=== PATIENT | male | born 1990 | race Caucasian/White ===

== ENCOUNTER 2016-11-07 20:16 | Emergency (ER) | payer SELFPAY ==
[~2016-11-07] VITALS: Ht 172.7 cm; Wt 81.5 kg
[~2016-11-07 20:16] MED LIST: ANTISOL30 EACH EAR; CIPR500T4 PO
[2016-11-07 20:18] VITALS: BP 137/83; PULSE 88; RESP 16; TEMP 98; O2SAT 99
[2016-11-07] MEDS ORDERED: TOBR.3%O RIGHT EYE (20:49)
--- NOTE | 2016-11-07 20:53 | PD ---
HPI Chief Complaint: Eye Problems/Injury Time Seen by Provider: 20:49 Travel History International Travel<30 days: No Contact w/Intl Traveler<30days: No Traveled to known affect area: No History of Present Illness HPI 26-year-old white male presents to emergency department with complains of pain in his right eyelid with a possible sty. He states that this is been bothering him nearly 1-2 weeks. He denies any blurred vision or double vision. He states that he had squeezed his eye last week and had some fluid come out. He does not wear glasses or contacts. He does construction. He is up-to-date with immunizations. No diplopia. No itching, burning or tearing. PFSH Past Medical History Medical History: Denies Significant Hx Diminished Hearing: No Tetanus Vaccination: < 5 Years Influenza Vaccination: No Past Surgical History Surgical History: No Previous Surgery Social History Alcohol Use: Yes Tobacco Use: Yes (10/24 PPD) Substance Use: No Allergies-Medications (Allergen,Severity, Reaction): Coded Allergies: Erythromycins (Verified Allergy, Mild, 11/07/16) Sulfa (Verified Allergy, Mild, 11/07/16) Reported Meds & Prescriptions Reported Meds & Active Scripts Active No Active Prescriptions or Reported Medications Review of Systems Except as stated in HPI: all other systems reviewed are Neg Eyes: Positive: Redness, Foreign Body Sensation, Pain, No: Diploplia, Blurred Vision, Photophobia, Drainage, Tearing, Visual changes Physical Exam Narrative GENERAL: This is a well-nourished, well-developed patient, in no apparent distress. SKIN: No rashes, ecchymoses or lesions. Warm and dry. HEAD: Atraumatic. Normocephalic. EYES: PERRL, EOMI, the left EYE no discharge or injection. No scleral icterus. The right eye is injected. There is a foreign body noticed at the 6:00 hour or the iris. Lids are flipped and no foreign body seen under the lids. Ophthaine is instilled in the right eye. The foreign bodies removed without incidence using a cotton tip applicator. Fluorescein stain reveals a small punctate abrasion from the foreign body but no rust ring. Visual acuity noted EARS: Clear NOSE: Nasal turbinates appear normal. THROAT: Mucosa pink and moist. Airway patent. NECK: Trachea midline. supple, moves head freely. LUNGS: Clear to auscultation. CV: Regular in rhythm. ABDOMEN: Soft nontender. EXT: No clubbing cyanosis or edema. Data Data Last Documented VS Vital Signs Date Time Temp Pulse Resp B/P Pulse Ox O2 Delivery O2 Flow Rate FiO2 11/07/16 20:18 98.0 88 16 137/83 99 MDM Medical Decision Making Medical Screen Exam Complete: Yes Emergency Medical Condition: Yes Medical Record Reviewed: Yes Differential Diagnosis MDM: High Differential diagnoses: Acute conjunctivitis (bacterial, viral, allergic, traumatic), glaucoma, iritis, traumatic globe injury, foreign body, corneal abrasion, corneal ulcer, diabetic retinopathy, photokeratitis, herpes keratitis , CMV retinitis Narrative Course Patient has a foreign body in his right eye just below the pupil. This is removed without incidence. This is right eye foreign body removal Diagnosis Primary Impression: RIGHT EYE FOREIGN BODY REMOVAL Referrals: Mireya Hahn MD 2 days Patient Instructions: General Instructions Additional Instructions: Rest. Wash eyelashes with baby shampoo 3 times daily. Warm compresses. Tobramycin ophthalmic ointment Followup with an eye doctor in 48 hours. Follow-up with a medical doctor one week. Return to the ER if any problems. Med/Other Pt SpecificInfo: Prescription(s) given Scripts Tobramycin Opth Oint (Tobrex Opth Oint)0.3 % Oint1 Applic RIGHT EYE TID #1 TUBE Ref 0 Prov:Rehana Palmer MD 11/07/16 Disposition: 01 DISCHARGE HOME Condition: Stable Jose Miguel Dhillon Nov 07, 2016 20:53
== END 2016-11-07 21:16 | disposition home or self-care (01) ==
LOC: NEPB 20:16
DX: T15.81XA Foreign body in other and multiple parts of external eye, right eye, initial encounter (principal); F17.200 Nicotine dependence, unspecified, uncomplicated; X58.XXXA Exposure to other specified factors, initial encounter
CPT/HCPCS: 99283

== ENCOUNTER 2017-10-20 11:36 | Emergency (ER) | payer SELFPAY ==
[~2017-10-20] VITALS: Ht 175.3 cm; Wt 79.5 kg
[~2017-10-20 11:36] MED LIST changes: -ANTISOL30 EACH EAR; -CIPR500T4 PO; +TOBR.3%O RIGHT EYE
[2017-10-20 11:37] VITALS: BP 138/83; PULSE 101; RESP 20; TEMP 98.8; O2SAT 99
--- NOTE | 2017-10-20 12:35 | RADRPT ---
EXAM DATE/TIME: 10/20/2017 12:03 [facility] COMPARISON: No previous studies available for comparison. INDICATIONS : Injured right hand today when a stack of lumber fell over, pain along 5th metacarpal of right hand MEDICAL HISTORY : None. SURGICAL HISTORY : None. ENCOUNTER: Initial ACUITY: 1 day PAIN SCORE: 10/10 LOCATION: Right hand FINDINGS: There is a comminuted fracture through the mid and distal shaft of the fifth metacarpal bone with a s ignificantly displaced butterfly fragment in the palmar direction. No intra-articular extension. Jodi ayad of the osseous structures of the hand are intact. No radiopaque foreign bodies CONCLUSION: 1. Comminuted fracture of the fifth metacarpal. Wilson Hernández MD on October 20, 2017 at 12:32 Board Certified Radiologist. This report was verified electronically.
--- NOTE | 2017-10-20 12:41 | PD ---
HPI Chief Complaint: Musculoskeletal Complaint Time Seen by Provider: 12:14 Travel History International Travel<30 days: No Contact w/Intl Traveler<30days: No Traveled to known affect area: No History of Present Illness HPI 27-year-old male presents to emergency department with right hand pain after wood fell on his hand last night. Patient states that he was moving some wood around when it fell directly on his hand. States his pain is moderate. Denies numbness or tingling of the fingers. Has full range of motion but with pain particularly of the fifth metacarpal area. Denies radiation of pain. Patient states that he drank alcohol last night to help reduce his pain but the pain did not go away and believes that he has a fracture. Patient is right-handed. Denies chronic medical issues or chronic medication use. PFSH Past Medical History Diminished Hearing: No Social History Alcohol Use: Yes Tobacco Use: Yes (/2 PPD) Substance Use: No Allergies-Medications (Allergen,Severity, Reaction): Coded Allergies: Sulfa (Sulfonamide Antibiotics) (Unverified Allergy, Mild, 10/20/17) azithromycin (Unverified Allergy, Mild, 10/20/17) erythromycin base (Unverified Allergy, Mild, 10/20/17) Reported Meds & Prescriptions Reported Meds & Active Scripts Active Review of Systems Except as stated in HPI: all other systems reviewed are Neg Physical Exam Narrative GENERAL: Well-nourished, well-developed patient. SKIN: Focused skin assessment warm/dry. HEAD: Normocephalic. EYES: No scleral icterus. No injection or drainage. NECK: Supple, trachea midline MUSCULOSKELETAL: No cyanosis, or edema. Right hand- edema over fifth metacarpal area. Tender to palpation. No ecchymosis or erythema. Neurovascular intact. BACK: Nontender without obvious deformity. No CVA tenderness. PSYCHIATRIC: No delusional thought processes. No hallucinations. Data Data Last Documented VS Vital Signs Date Time Temp Pulse Resp B/P (MAP) Pulse Ox O2 Delivery O2 Flow Rate FiO2 10/20/17 11:37 98.8 101 20 138/83 (101) 99 Room Air Orders Orders Hand, Complete ([id number]) (10/20/17 ) Ed Discharge Order (10/20/17 12:49) MDM Medical Decision Making Medical Screen Exam Complete: Yes Emergency Medical Condition: Yes Differential Diagnosis Right hand fracture, sprain, contusion Narrative Course 27-year-old male presents to emergency department with right hand pain after wood fell on his hand last night. Patient states that he was moving some wood around when it fell directly on his hand. States his pain is moderate. Denies numbness or tingling of the fingers. Has full range of motion but with pain particularly of the fifth metacarpal area. Denies radiation of pain. Patient states that he drank alcohol last night to help reduce his pain but the pain did not go away and believes that he has a fracture. Patient is right-handed. Denies chronic medical issues or chronic medication use. Vital Signs stable. Right fifth metacarpal and hand - Neurovascularly intact. Last Impressions Hand X-Ray 10/20/17 0000 Signed Impressions: Service Date/Time: Friday, October 20, 2017 12:03 - CONCLUSION: 1. Comminuted fracture of the fifth metacarpal. Wilson Hernández MD Ulnar gutter splint right hand by [employer]. Offered patient pain medication for his fracture. Patient states he would prefer to avoid narcotic medications. Advise he will use Tylenol or Motrin per package instructions for his pain relief. Explained the importance of following up with a hand specialist or orthopedic for his fracture. Patient verbalized understanding and states he will comply. 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 Recommend he be cleared by the specialist. Diagnosis Primary Impression: Fracture of hand Qualified Codes: S62.91XA - Unspecified fracture of right wrist and hand, initial encounter for closed fracture Referrals: Orthopedist Departure Forms: Tests/Procedures, Work Release Enter return to work date: Oct 30, 2017 Special Instructions: Light duty, avoid excessive use of the hand. Must be cleared by ortho. Additional Instructions: Use ice or heat for symptom relief. Elevate the joint above the heart to reduce swelling. You may use compression with Caleb wrap or similar to reduce swelling. If symptoms persist or worsen, return to the emergency department. Follow up with your primary care physician within 2 days. Follow-up with an orthopedic doctor this week. Disposition: 01 DISCHARGE HOME Condition: Stable Olinda Bell Oct 20, 2017 12:41
== END 2017-10-20 13:53 | disposition home or self-care (01) ==
LOC: NEPK 11:36
DX: S62.326A Displaced fracture of shaft of fifth metacarpal bone, right hand, initial encounter for closed fracture (principal); F17.200 Nicotine dependence, unspecified, uncomplicated; W18.30XA Fall on same level, unspecified, initial encounter
CPT/HCPCS: 29125; 73130